=== PATIENT | female | born 1970 | race Caucasian/White ===

== ENCOUNTER 2021-10-05 15:38 | Inpatient (IN) | payer MEDICARE ==
[2021-10-05] MEDS ORDERED: Morphine 4 MG/ML VIAL ONE (16:56)
[2021-10-05 17:54] LABS: SARS-CoV-2 NAA Rapid Test Not Detected (NotDetected)
[2021-10-05] MEDS ORDERED: Ondansetron PF 4 MG/2 ML Vial IVP PRN (18:30)
[2021-10-05] MEDS ORDERED: Acetaminophen 325 MG TAB PO PRN (18:30)
[2021-10-05] MEDS ORDERED: Promethazine 25 MG TAB PO PRN (18:33)
[2021-10-05] MEDS ORDERED: Bisacodyl 5 MG TAB PO PRN (18:33)
[2021-10-05] MEDS ORDERED: predniSONE 20 MG TAB PO SCH (21:00)
[2021-10-05 21:35] VITALS: BMI 31.6
[2021-10-05] MEDS: Cefepime 1 GM in Sodium Chloride 0.9% 100 ML IVPB SCH (22:11)
[2021-10-05] MEDS: HYDROcodone/Acetaminophen 10/325 mg Tablet PO PRN (22:12)
[2021-10-05] MEDS: Famotidine 20 MG TAB PO SCH (22:12)
[2021-10-06] MEDS ORDERED: oxyCODONE 5 MG TAB PO SCH (02:00)
[2021-10-06] MEDS ORDERED: Sodium Chloride 0.9% 250 ML 250 ML ONE (02:49)
[2021-10-06] MEDS ORDERED: Vancomycin HCl 1 GM in Sodium Chloride 0.9% 250 ML 250 ML IVPB SCH (03:00)
[2021-10-06 05:26] LABS: #Monocytes 0.5 10x3/uL (0.0-1.1); #Neutrophils 3.6 10x3/uL (1.5-8.4); %Lymphocytes 15.4 % (18.0-47.0); %Monocytes 10.2 % (0.0-10.0); Hemoglobin 12.1 g/dL (12.0-15.5); Mean Corpuscular HGB CONC 32.9 g/dL (32.0-36.0); Mean Corpuscular Hemoglobin 31.3 pg (27.0-33.0); Mean Corpuscular Volume 95.1 fl (81.6-98.3); Mean Platelet Volume 11.3 fl (7.4-10.4); Platelet Count 248 10x3/uL (150-450); RBC Distribution Width 11.8 % (11.5-14.5); Red Blood Cell (RBC) Count 3.87 10x6/uL (3.90-5.03); White Blood Cell (WBC) Count 4.9 10x3/uL (3.5-10.5)
[2021-10-06 05:35] LABS: ALT (SGPT) 69 U/L (8-55); AST (SGOT) 30 U/L (5-34); Albumin 4.1 g/dL (3.5-5.0); Alkaline Phosphatase 105 U/L (40-110); Anion Gap 17 mmol/L (10-20); BUN (Urea Nitrogen) 23 mg/dL (9.8-20.1); Bilirubin, Total 0.5 mg/dL (0.2-1.2); Calc. Creatinine Clearance 121 mL/min (70-130); Calcium 9.9 mg/dL (7.8-10.44); Carbon Dioxide 22 mmol/L (22-29); Chloride 102 mmol/L (98-107); Globulin 3.7 g/dL (2.4-3.5); Glucose 148 mg/dL (70-105); Potassium 4.2 mmol/L (3.5-5.1); Protein, Total 7.8 g/dL (6.0-8.3); Sodium 137 mmol/L (136-145)
[2021-10-06] MEDS ORDERED: Acetaminophen 325 MG TAB PO PRN (09:21)
[2021-10-06] MEDS: predniSONE 20 MG TAB PO SCH (09:44)
[2021-10-06] MEDS: Famotidine 20 MG TAB PO SCH ×2 (09:44→21:21)
[2021-10-06] MEDS: Levothyroxine Sodium 75 MCG TAB PO SCH (09:45)
[2021-10-06] MEDS: Enoxaparin Sodium 40 MG/0.4 ML SYRINGE SC SCH (09:45)
[2021-10-06] MEDS: Cefepime 1 GM in Sodium Chloride 0.9% 100 ML IVPB SCH ×3 (09:46→21:21)
[2021-10-06] MEDS ORDERED: Methylnaltrexone 12 MG/0.6 ML VIAL SC SCH (11:30)
[2021-10-06 14:16] LABS: Vancomycin, Trough 10.1 ug/mL
[2021-10-06] MEDS: Vancomycin HCl 1 GM in Sodium Chloride 0.9% 250 ML 250 ML IVPB SCH ×2 (15:27→23:01)
[2021-10-06] MEDS ORDERED: Diazepam 5 MG TAB PO PRN (16:12)
[2021-10-06] MEDS: oxyCODONE 5 MG TAB PO PRN ×2 (17:39→23:01)
[2021-10-06] MEDS ORDERED: Zolpidem Tartrate 5 MG TAB PO SCH (21:00)
[2021-10-07] MEDS: HYDROcodone/Acetaminophen 10/325 mg Tablet PO PRN (02:30)
[2021-10-07 03:36] LABS: #Monocytes 0.7 10x3/uL (0.0-1.1); #Neutrophils 3.2 10x3/uL (1.5-8.4); %Basophils 0.4 % (0.0-2.0); %Eosinophils 0.2 % (0.0-6.0); %Lymphocytes 27.3 % (18.0-47.0); %Monocytes 12.2 % (0.0-10.0); %Neutrophils 59.7 % (40.0-75.0); Hemoglobin 10.9 g/dL (12.0-15.5); Mean Corpuscular HGB CONC 33.1 g/dL (32.0-36.0); Mean Corpuscular Hemoglobin 31.8 pg (27.0-33.0); Mean Corpuscular Volume 95.9 fl (81.6-98.3); Mean Platelet Volume 10.8 fl (7.4-10.4); Platelet Count 205 10x3/uL (150-450); RBC Distribution Width 12.1 % (11.5-14.5); Red Blood Cell (RBC) Count 3.43 10x6/uL (3.90-5.03); White Blood Cell (WBC) Count 5.3 10x3/uL (3.5-10.5)
[2021-10-07 03:49] LABS: Anion Gap 13 mmol/L (10-20); BUN (Urea Nitrogen) 23 mg/dL (9.8-20.1); Calc. Creatinine Clearance 118 mL/min (70-130); Calcium 9.6 mg/dL (7.8-10.44); Carbon Dioxide 25 mmol/L (22-29); Chloride 106 mmol/L (98-107); Glucose 109 mg/dL (70-105); Potassium 4.1 mmol/L (3.5-5.1); Sodium 140 mmol/L (136-145)
[2021-10-07] MEDS: Vancomycin HCl 1 GM in Sodium Chloride 0.9% 250 ML 250 ML IVPB SCH (08:03)
[2021-10-07] MEDS: predniSONE 20 MG TAB PO SCH (08:05)
[2021-10-07] MEDS: Enoxaparin Sodium 40 MG/0.4 ML SYRINGE SC SCH (08:06)
[2021-10-07] MEDS: Levothyroxine Sodium 75 MCG TAB PO SCH (08:07)
[2021-10-07] MEDS: Famotidine 20 MG TAB PO SCH (08:07)
[2021-10-07] MEDS: oxyCODONE 5 MG TAB PO PRN (08:22)
[2021-10-07] MEDS ORDERED: Lisinopril 10 MG TAB PO SCH (09:00)
[2021-10-07] MEDS: Cefepime 1 GM in Sodium Chloride 0.9% 100 ML IVPB SCH (10:26)
[2021-10-07 12:02] VITALS: BP 119/64; TEMP 97.5
== END 2021-10-07 15:20 | disposition home or self-care (01) | DRG 603 ==
LOC: CSHERS 15:38 → CSHTELE 18:48
PROVIDERS: ADMIT Internal Medicine; ATTEND Hospitalist
DX: L03.115 Cellulitis of right lower limb (principal); I10 Essential (primary) hypertension; M10.9 Gout, unspecified; Z20.822 Contact with and (suspected) exposure to COVID-19; G89.4 Chronic pain syndrome; M19.90 Unspecified osteoarthritis, unspecified site; M06.9 Rheumatoid arthritis, unspecified; M79.7 Fibromyalgia; F41.1 Generalized anxiety disorder; E03.9 Hypothyroidism, unspecified; Z91.041 Radiographic dye allergy status; Z79.899 Other long term (current) drug therapy; Z90.49 Acquired absence of other specified parts of digestive tract; Z90.710 Acquired absence of both cervix and uterus; Z98.890 Other specified postprocedural states
CPT/HCPCS: 36415; 74018; 80048; 80053; 80202; 83880; 85025; 85652; 86140; 96374; J0692; J1650; J2270; J3370; J3490; J7050; J7512; U0002